=== PATIENT | female | born 1960 | race Caucasian/White ===

== ENCOUNTER 2017-02-01 11:10 | Emergency (ER) | payer OTHER ==
[2017-02-01 11:43] LABS: URINE CULTURE NEEDED? NO; URINE MICRO REVIEW NEEDED? NO; URINE SOURCE CLEAN CATCH
[2017-02-01 11:43] LABS: MANUAL DIFF NEEDED? NO
[2017-02-01 11:48] LABS: BASO% 0.3 % (0.0-0.8); EOS# 0.15 X1000 (0.0-0.7); EOS% 2.4 % (0.0-10.0); HEMOGLOBIN 15.1 g/dL (12.0-16.0); LYMPH# 2.23 X1000 (1.2-3.4); LYMPH% 36.3 % (20.5-51.1); MCH 31.5 PG (27-31); MCHC 34.3 g/dL (33-37); MCV 91.7 FL (81-99); MONO% 8.1 % (1.7-9.3); MPV 9.1 FL (7.4-10.4); NEUT% 52.9 % (42.2-75.2); PLT 407 X1000 (130-400)
[2017-02-01 11:53] LABS: BILIRUBIN URINE NEGATIVE (NEGATIVE); BLOOD URINE NEGATIVE (NEGATIVE); COLOR YELLOW; GLUCOSE URINE NEGATIVE (NEGATIVE); LEUKOCYTES URINE NEGATIVE (NEGATIVE); NITRITE URINE NEGATIVE (NEGATIVE); PH URINE 6.5; PROTEIN URINE NEGATIVE (NEGATIVE); SP GRAVITY URINE 1.008; TURBIDITY URINE CLEAR (CLEAR); UROBILINOGEN URINE NORMAL (NORMAL)
[2017-02-01 11:55] LABS: UR EPITHELIAL CELLS <10 /HPF (<10); URINE BACTERIA NEGATIVE /HPF; URINE RBC <10 /HPF (<10); URINE WBC <10 /HPF (<10)
[2017-02-01 12:00] LABS: UR AMPHETAMINES QUAL NONE DETECTED (NONE DETECT); UR BARBITUATES QUAL NONE DETECTED (NONE DETECT); UR BENZODIAZEPIN QUAL NONE DETECTED (NONE DETECT); UR CANNABINOIDS QUAL NONE DETECTED (NONE DETECT); UR COCAINE QUAL NONE DETECTED (NONE DETECT); UR METHADONE QUAL NONE DETECTED (NONE DETECT); UR OPIATES QUAL NONE DETECTED (NONE DETECT); UR OXYCODONE QUAL NONE DETECTED (NONE DETECT); UR PCP QUAL NONE DETECTED (NONE DETECT)
[2017-02-01 12:07] LABS: AGAP 12; ALBUMIN 4.6 g/dL (3.5-5.0); ALKALINE PHOSPHATASE 101 U/L (32-104); BUN 10 mg/dL (8-22); CALCIUM 9.3 mg/dL (8.8-10.2); CHLORIDE 97 mmol/L (98-107); COSMO 270; GOT 24 U/L (10-30); GPT 17 U/L (10-36); POTASSIUM 4.1 mmol/L (3.5-5.1); SODIUM 136 mmol/L (136-145); TCO2 27 mmol/L (25-35); TOTAL BILIRUBIN 0.26 mg/dL (0.20-1.00); TOTAL PROTEIN 7.5 g/dL (6.3-8.3)
--- NOTE | 2017-02-01 12:25 | PROVIDER DOCUMENTATION ---
HPI-Psychological Disorder - General Source: patient - History of Present Illness-Psych Onset/Duration: reports: gradual (worse over the past couple weeks) Timing: reports: still present Severity: reports: mild Situational problems related to:: reports: N/A Psychiatric Complaints: reports: hallucinating (auditory telling her to hurt herself and others.) Substance Use: reports: denies Previous psych related hospitalizations?: Yes Patient arrived by:: private car Similar Symptoms Previously?: No Recently seen or treated by another doctor?: No <Irlanda Friedman - Last Filed: 02/01/17 16:02> <Yahir Butts - Last Filed: 02/02/17 06:17> - General Chief Complaint: Psych Stated Complaint: HEARING VOICES Time Seen by Provider: 02/01/17 12:11 Allergies/Adverse Reactions: Patient Allergies Allergy/AdvReac Type Severity Reaction Status Date / Time No Known Allergies Allergy Verified 02/01/17 11:23 - History of Present Illness-Psych Nature of Presenting Problem: 56 y/o F presents to ED cc of hearing voices. Pt states it was been increasingly gotten worse over the "past couple of weeks". Pt states she has mental health history and has been taking her medication . Pt denies missing any of her medication . Pt also denies anything triggering these voices. Pt states he voices are telling her to hurt her self and others with no plan. Pt states she does not want to repeat what they are telling her to do. Pt is alert and oriented. Denies any headache/cp/sob. (Irlanda Friedman) Review of Systems - Adult - REVIEW OF SYSTEMS - ADULT Constitutional: denies: chills, fever Cardiovascular: denies: see HPI, palpitations Respiratory: denies: cough, shortness of breath Gastrointestinal: denies: abdominal pain, diarrhea, nausea, vomiting Genitourinary: denies: dysuria, hematuria Musculoskeletal: denies: bone pain, back pain Neurological: denies: dizziness/vertigo, headache/migraines Psychiatric: reports: other (auditory telling her to hurt herself and others.). denies: emotional problems <Irlanda Friedman - Last Filed: 02/01/17 16:02> Past History - Adult - PAST MEDICAL HISTORY-ADULT Review of Records: reports: Old Records Reviewed, Nursing Assessment Review Cardiovascular: reports: hyperlipidemia - PRIOR SURGERIES/PROCEDURES Surgical/Procedure History: reports: - SOCIAL HISTORY Smoking: greater than 1 pack/day Provider spent 3-5 mins advising pt. on dangers of tobacco.: Discussed manners to quit use, and f/u contacts for add'l counseling. Substance Use: denies <Irlanda Friedman - Last Filed: 02/01/17 16:02> Physical Exam-Psych Focus - Physical Exam-Psych Initial Vital Signs Reviewed: Yes Appearance: appropriate appearance, appropriate insight, no apparent distress, no memory impairment, alert Neurological: alert, normal mood/affect, calm, oriented x 3 Behavior/Eye Contact/Speech: cooperative, good eye contact, normal speech Thoughts/Hallucinations: normal thought pattern, auditory hallucinations Respiratory: chest non-tender, lungs clear, normal breath sounds Cardiovascular: normal peripheral pulses, no edema, tachycardia Abdominal Exam: normal bowel sounds, non tender, soft Back Exam: no CVA tenderness Extremity: normal range of motion, non-tender, normal gait Integumentary: normal color, normal turgor, warm/dry <Irlanda Friedman - Last Filed: 02/01/17 16:02> Progress - REASSESSMENT Reassessment #1 Time Reassessed: 15:27 Status: unchanged (reports not being SI/HI) <Irlanda Friedman - Last Filed: 02/01/17 16:02> - PSYCHIATRIC Medically clear for psych eval and/or transfer to [facility].: Yes <Yahir Butts - Last Filed: 02/02/17 06:17> - PLAN OF CARE/RESULTS Progress/Plan/Lab Results: PLAN: LABS, URINE, CLEAR FOR [place] TO ASSES PT. PT WAS MEDICALLY CLEARED FOR SCREENING PT WAS SCREENED BY ANTONIO KIDD. 1454: Lida(Antonio kidd) spoke with . Lida states pt is denying being SI/HI and is unsure why she is in ED. Lida request speak to pt again . 1527: Dr. Butts spoke with pt again . Pt states she missed understood what was asking . Pt reports she is not SI/HI today. States she has been in the past . When pt called [facility] they advised her to come to ed for evaluation. 1541: Dr. Butts spoke with Lida ( Antonio kidd) and reports what pt said. Plan is for pt to follow up with primary care and the [facility] . PT WILL BE DISCHARGED HOME. PT UNDERSTAND PLAN AND KNOWS TO FOLLOW UP WITH MENTAL HEALTH Laboratory Tests 02/01/17 02/01/17 02/01/17 11:20 11:20 11:20 WBC 6.14 RBC 4.80 Hgb 15.1 Hct 44.0 MCV 91.7 MCH 31.5 H MCHC 34.3 RDW Std Deviation 12.8 Plt Count 407 H MPV 9.1 Immature Gran % (Auto) 0.0 Neut % (Auto) 52.9 Lymph % (Auto) 36.3 Kimball % (Auto) 8.1 Eos % (Auto) 2.4 Baso % (Auto) 0.3 Immature Gran # (Auto) 0.00 Neut # (Auto) 3.24 Lymph # (Auto) 2.23 Kimball # (Auto) 0.50 Eos # (Auto) 0.15 Baso # (Auto) 0.02 Sodium 136 Potassium 4.1 Chloride 97 L Carbon Dioxide 27 Anion Gap 12 BUN 10 Creatinine 0.6 Estimated GFR/1.73 m2 > 60 BUN/Creatinine Ratio 17 Glucose 89 Calculated Osmolality 270 Calcium 9.3 Total Bilirubin 0.26 AST 24 ALT 17 Alkaline Phosphatase 101 Total Protein 7.5 Albumin 4.6 Globulin 2.9 Albumin/Globulin Ratio 1.6 Vitamin B12 TSH Free T4 Urine Source Urine Color Urine Turbidity Urine pH Ur Specific Harrah Urine Protein Ur Glucose (Stick) Ur Ketones (Stick) Urine Blood Urine Nitrite Urine Bilirubin Urobilinogen Dipstick Urine Leukocytes Urine WBC (Auto) Urine RBC (Auto) U Epithel Cells (Auto) Urine Bacteria (Auto) Urine Opiates Screen Ur Oxycodone Screen Ur Methadone, Qual Ur Barbiturates Screen Ur Phencyclidine Scrn Ur Amphetamines Screen U Benzodiazepines Scrn Urine Cocaine Screen U Cannabinoids Screen Plasma/Serum Ethyl Alc 02/01/17 02/01/17 02/01/17 11:20 11:25 11:25 WBC RBC Hgb Hct MCV MCH MCHC RDW Std Deviation Plt Count MPV Immature Gran % (Auto) Neut % (Auto) Lymph % (Auto) Kimball % (Auto) Eos % (Auto) Baso % (Auto) Immature Gran # (Auto) Neut # (Auto) Lymph # (Auto) Kimball # (Auto) Eos # (Auto) Baso # (Auto) Sodium Potassium Chloride Carbon Dioxide Anion Gap BUN Creatinine Estimated GFR/1.73 m2 BUN/Creatinine Ratio Glucose Calculated Osmolality Calcium Total Bilirubin AST ALT Alkaline Phosphatase Total Protein Albumin Globulin Albumin/Globulin Ratio Vitamin B12 429 TSH 1.13 Free T4 1.02 Urine Source CLEAN CATCH Urine Color YELLOW Urine Turbidity CLEAR Urine pH 6.5 Ur Specific Harrah 1.008 Urine Protein NEGATIVE Ur Glucose (Stick) NEGATIVE Ur Ketones (Stick) NEGATIVE Urine Blood NEGATIVE Urine Nitrite NEGATIVE Urine Bilirubin NEGATIVE Urobilinogen Dipstick NORMAL Urine Leukocytes NEGATIVE Urine WBC (Auto) <10 Urine RBC (Auto) <10 U Epithel Cells (Auto) <10 Urine Bacteria (Auto) NEGATIVE Urine Opiates Screen NONE DETECTED Ur Oxycodone Screen NONE DETECTED Ur Methadone, Qual NONE DETECTED Ur Barbiturates Screen NONE DETECTED Ur Phencyclidine Scrn NONE DETECTED Ur Amphetamines Screen NONE DETECTED U Benzodiazepines Scrn NONE DETECTED Urine Cocaine Screen NONE DETECTED U Cannabinoids Screen NONE DETECTED Plasma/Serum Ethyl Alc Orders Category Date Time Status ALCOHOL BLOOD Stat Lab 02/01/17 11:20 Completed CBC WITH ELECTRONIC DIFF [HEME] Stat Lab 02/01/17 11:20 Completed COMPREHENSIVE METABOLIC PANEL [CHEM] Stat Lab 02/01/17 11:20 Completed FREE T4 Stat Lab 02/01/17 11:20 Completed TSH Stat Lab 02/01/17 11:20 Completed URINALYSIS W/POSS RFLX CULT [URINALYSIS] Stat Lab 02/01/17 11:25 Completed URINE DRUG SCREEN Stat Lab 02/01/17 11:25 Completed VITAMIN B12 Stat Lab 02/01/17 11:20 Completed Vital Signs - 24 hr 02/01/17 02/01/17 11:15 15:40 Temperature 98.3 F Pulse Rate 98 H 78 Respiratory 20 18 Rate Blood Pressure 137/100 115/77 O2 Sat by Pulse 98 100 Oximetry (Irlanda Friedman) Departure - Departure Time of Disposition Order: 16:02 Certified Medical Emergency: Emergent <Irlanda Friedman - Last Filed: 02/01/17 16:02> <Yahir Butts - Last Filed: 02/02/17 06:17> - Departure DIAGNOSIS: Auditory hallucination Psychosis Qualifiers: Psychosis type: unspecified psychosis type Qualified Code(s): F29 - Unspecified psychosis not due to a substance or known physiological condition Disposition: HOME 01 Condition: Stable Additional Instructions: FOLLOW UP WITH PRIMARY CARE PHYSICIAN AT [facility] ED Follow Up Instructions: You have been treated by a care provider in the Emergency Department. These instructions are being provided to you so you can have an understanding of how to care for yourself upon discharge. Upon discharge from the Emergency Department, you are responsible for making arrangements for follow-up care by a physician of your choice. Take all prescribed medications as directed. Return to the Emergency Department immediately for any new or worsening symptoms. You may call the Physician Referral phone number at [phone] to obtain a list of Physicians who are taking new patients. Referrals: None,PCP [Primary Care Provider] - Instructions: Schizophrenia, Psychosis Attestation - Scribe Verification/Attestation Scribe:: Irlanda Friedman Acting as Scribe for:: Yahir Butts Scribe documention review:: This chart was documented by a scribe and accurately reflects the service the provider performed and the decisions made by the provider. <Irlanda Friedman - Last Filed: 02/01/17 16:02> Physician Attestation - Physician Attestation I, the provider, attest to the following statement:: Yahir Butts Physician documentation Attestation:: This documentation recorded by the scribe accurately reflects the service I personally performed and the decisions made by me. <Yahir Butts - Last Filed: 02/02/17 06:17>
[2017-02-01 12:26] LABS: FREE T4 1.02 ng/dL (0.93-1.70)
[2017-02-01 15:40] VITALS: BP 115/77
== END 2017-02-01 16:51 | disposition home or self-care (01) ==
LOC: ED 11:10
DX: F29 Unspecified psychosis not due to a substance or known physiological condition (principal); R44.0 Auditory hallucinations; E78.5 Hyperlipidemia, unspecified; F17.210 Nicotine dependence, cigarettes, uncomplicated; Z71.6 Tobacco abuse counseling
CPT/HCPCS: 80053; 81001; 82607; 84439; 84443; 85025; G0480; 80320; 80324; 80345; 80346; 80349; 80353; 80358; 80361; 80365; 83992